=== PATIENT | male | born 1955 | race Caucasian/White ===

== ENCOUNTER 2023-07-07 15:33 | Inpatient (IN) | payer OTHER ==
--- OUTSIDE RECORDS SUMMARY | 2023-07-07 15:36 | XMS REPORT | Continuity of Care Document ---
Author Name Unknown Address [address] [facility]. [address] [place] [address] [facility] Address [address] [facility] [address]. [address] [place] [address] Care Team Providers Care Bakery Chef Name Role Phone Leonardoher Nemesio Primary Care Physician +[phone] Tricia Moore RN Attending Clinician Unavailable IBIS HUGHES Attending Clinician Lobito Maciel MD Attending Clinician + [phone] Ibis Hughes MD Attending Clinician + [phone] [place] Attending Clinician Unavailable FELICIA OMER Attending Clinician UnavailIBIS Zhang Admitting Clinician Ibis Lepe MD Admitting Clinician + [phone] [place] Admitting Clinician Unavailable Payers Payer Name Policy Type Policy Number Effective Date Expirati on Date Source Problems Condition Name Condition Details Condition Category Status Onset Date Resolution Date Last Treatment Date Treating Clinician Comments Source Cellulitis of right index finger Cellulitis of right index finger Disease Active 11-06 00:00: 00 [facility] Allergies, Adverse Reactions, Alerts Allergy Name Allergy Type Status Severity Reaction(s) Onset Date Inactive Date Treating Clinician Comments Source NO KNOWN ALLERGIE S Drug Class Active [facility] Social History Social Habit Start Date Stop Date Quantity Comments Source History SDOH Alcohol Std Drinks [facility] History SDOH Alcohol Binge [facility] History SDOH Social Connections Get Together [facility] History SDOH Social Connections Jew [facility] History SDOH Social Connections Membership [facility] History SDOH Social Connections Meetings [facility] History SDOH Alcohol Frequency 2022-11-07 00:00:00 2022-11-07 00:00:00 1 [facility] History SDOH Social Connections Phone 2022-11-07 00:00:00 2022-11-07 00:00:00 5 [facility] History SDOH Social Connections Living 2022-11-07 00:00:00 2022-11-07 00:00:00 3 [facility] History SDOH Physical Activity DPW 2022-11-07 00:00:00 2022-11-07 00:00:00 0 [facility] History SDOH Physical Activity MPS 2022-11-07 00:00:00 2022-11-07 00:00:00 0 [facility] History SDOH Financial 2022-11-07 00:00:00 2022-11-07 00:00:00 5 [facility] History SDOH Food Worry 2022-11-07 00:00:00 2022-11-07 00:00:00 1 [facility] History SDOH Food Scarcity 2022-11-07 00:00:00 2022-11-07 00:00:00 1 [facility] History SDOH Transport Med 2022-11-07 00:00:00 2022-11-07 00:00:00 2 [facility] History SDOH Transport Non-Med 2022-11-07 00:00:00 2022-11-07 00:00:00 2 [facility] History SDOH Housing Unable to Pay 2022-11-07 00:00:00 2022-11-07 00:00:00 2 [facility] History SDOH Housing Places Lived 2022-11-07 00:00:00 2022-11-07 00:00:00 1 [facility] History SDOH Housing Homeless Last Year 2022-11-07 00:00:00 2022-11-07 00:00:00 2 [facility] Tobacco use and exposure 2022-11-06 00:00:00 2022-11-06 00:00:00 Smokeless tobacco non-user [facility] Sex Assigned At 1955 00:00:00 1955 00:00:00 [facility] Smoking Status Start Date Stop Date Source Never smoked tobacco [facility] Medications Ordered Medication Name Filled Medication Name Start Date Stop Date Current Medication? Ordering Clinician Indication Dosage Frequency Signature (SIG) Comments Components Source atorvastati n 20 mg tablet 11-07 15:25: 41 Yes 20mg Take 1 tablet by mouth at bedtime. [facility] atorvastati n 20 mg tablet 11-07 15:25: 41 Yes 20mg Take 1 tablet by mouth at bedtime. [facility] ampicillin- sulbactam (UNASYN) 3 g in NaCl 0.9% (NS) 100 mL MINI-BAG 11-07 03:00: 00 11-07 15:01 :00 No 3g 3 g, IV Piggyback, Q6H ABX, 3 doses, First dose (after last reorder) on Thu11/06/22 at 2200, Last dose on Thu11/07/22 at 1000, Administer over 30 Minutes, 100 mL
Reas on for Anti-Infec tive: Empiric Therapy for Suspected Infection< br>Empiric Therapy Site: Skin / Soft tissue
Duration of therapy: 72 hours [facility] atorvastati n (LIPITOR) tablet 20 mg 11-07 02:00: 00 Yes 20mg 20 mg, Oral, QHS, First dose on Thu11/06/22 at 2100, Until Discontinu ed, Routine [facility] amoxicillin -clavulanat e (AUGMENTIN) 875-125 mg per tablet 11-07 00:00: 00 11-17 04:59 :00 No [id number] 1{tbl} Take 1 tablet by mouth in the morning and 1 tablet in the evening. Do all this for 9 days. [facility] amoxicillin -clavulanat e (AUGMENTIN) 875-125 mg per tablet 11-07 00:00: 00 11-17 04:59 :00 No [id number] 1{tbl} Take 1 tablet by mouth in the morning and 1 tablet in the evening. Do all this for 9 days. [facility] enoxaparin (LOVENOX) injection 40 mg 11-06 22:00: 00 Yes 40mg 40 mg, Subcutaneo us, DAILY, First dose on Cris 11/06/22 at 1700, Until Discontinu ed, Routine [facility] acetaminoph en (TYLENOL) tablet 650 mg 11-06 20:21: 44 Yes 650mg 650 mg, Oral, Q6HPRN, Starting on Cris 11/06/22 at 1521, Until Discontinu ed, Routine, Pain (scale 1-3) [facility] ampicillin- sulbactam (UNASYN) 3 g in NaCl 0.9% (NS) 100 mL MINI-BAG 11-06 14:47: 00 11-06 15:24 :00 No 3g 3 g, IV Piggyback, ONCE, 1 dose, On Cris 11/06/22 at 1000, Administer over 30 Minutes, 100 mL
Reas on for Anti-Infec tive: Empiric Therapy for Suspected Infection< br>Empiric Therapy Site: Skin / Soft tissue
Duration of therapy: 72 hours [facility] Vital Signs Vital Name Observation Time Observation Value Comments S ource Systolic blood pressure 2022-11-07 16:19:00 128 mm[Hg] [facility] Diastolic blood pressure 2022-11-07 16:19:00 75 mm[Hg] [facility] Heart rate 2022-11-07 16:19:00 58 /min Nyasia [facility] Body temperature 2022-11-07 16:19:00 36.67 Lizbeth [facility] Respiratory rate 2022-11-07 16:19:00 18 /min [facility] Oxygen saturation in Arterial blood by Pulse oximetry 2022-11-07 16:19:00 93 /min [place] [facility] Body height 2022-11-07 02:43:00 175.3 cm [facility] Body weight 2022-11-06 14:17:00 80.74 kg [facility] BMI 2022-11-06 14:17:00 26.29 kg/m2 [facility] Procedures Procedure Date / Time Performed Performing Clinicia n Source COMP. METABOLIC PANEL (66376) 2022-11-06 15:27:00 Heron Real [facility] XR HAND 3+ VW RIGHT 2022-11-06 15:23:00 Juan Real [facility] CBC WITH DIFF 2022-11-06 15:12:00 [facility]AT[facility] 2022-11-06 14:10:52 Doctor Unassigned, Lula [facility] Encounters Start Date/Time End Date/Time Encounter Type Admission Type Attending Clinicians Care Facility Care Department Encounter ID Source 2022-11-10 00:00:00 2022-11-10 00:00:00 Transition of Care Tricia MoorePramod COSTA [id number] [facility] 2022-11-06 09:22:00 2022-11-07 15:25:00 Outpatient X [facility] [id number] [facility] 2022-11-06 09:22:00 2022-11-07 15:25:00 Emergency Morrical, Ibis Austin [facility] [id number] [facility] 2020-04-04 09:54:00 2020-04-04 23:59:00 TIFFANIE S 3 [place], LES [facility], [address], [facility] [place], [place] [place] [address] [facility] [id number] [facility] l (LUF/LI V/SA) 2019-10-29 13:47:00 2019-10-29 18:54:00 Emergency E FELICIA OMER MHNE MHNE 7500 MHNE Results Test Description Test Time Test Comments Results Result Co mments Source [facility] WITH [id number] 15:18:26* Test Item Value Reference Range Interpretation Comme nts WBC (test code = 6690-2) 10.02 See_Comment [Automated messa ge] The system which generated this result transmitted reference range: 4.20 - 10.70 10*3/?L. The reference range was not used to interpret this result as normal/abnormal. RBC (test code = 789-8) 5.03 See_Comment [Automated messa ge] The system which generated this result transmitted reference range: 4.26 - 5.52 10*6/?L. The reference range was not used to interpret this result as normal/abnormal. HGB (test code = 718-7) 15.1 g/dL 12.2-16.4 HCT (test code = 4544-3) 44.5 % 38.4-49.3 MCV (test code = 787-2) 88.5 fL 81.7-95.6 MCH (test code = 785-6) 30.0 pg 26.1-32.7 MCHC (test code = 786-4) 33.9 g/dL 31.2-35.0 RDW-SD (test code = 95632-1) 43.3 fL 38.5-51.6 RDW-CV (test code = 788-0) 13.3 % 12.1-15.4 PLT (test code = 777-3) 160 See_Comment [Automated messa ge] The system which generated this result transmitted reference range: 150 - 328 10*3/?L. The reference range was not used to interpret this result as normal/abnormal. MPV (test code = 80229-2) 9.8 fL 9.8-13.0 NRBC/100 WBC (test code = 9389656470) 0.0 See_Comment [Automated [employer] ssage] The system which generated this result transmitted reference range: 0.0 - 10.0 /100 WBCs. The reference range was not used to interpret this result as normal/abnormal. NRBC x10^3 (test code = 5318475907) See_Comment [Automated messa ge] The system which generated this result transmitted reference range: 10*3/?L. The reference range was not used to interpret this result as normal/abnormal. GRAN MAT (NEUT) % (test code = 770-8) 69.2 % IMM GRAN % (test code = 5755949945) 0.30 % LYMPH % (test code = 736-9) 17.4 % MONO % (test code = 5905-5) 11.3 % EOS % (test code = 713-8) 1.4 % BASO % (test code = 706-2) 0.4 % GRAN MAT x10^3(ANC) (test code = 5006256407) 6.94 10*3/uL 1.99-6.95 IMM GRAN x10^3 (test code = 1321007264) 0.03 10*3/uL 0.00-0.06 LYMPH x10^3 (test code = 731-0) 1.74 10*3/uL 1.09-3.23 MONO x10^3 (test code = 742-7) 1.13 10*3/uL 0.36-1.02 H EOS x10^3 (test code = 711-2) 0.14 10*3/uL 0.06-0.53 BASO x10^3 (test code = 704-7) 0.04 10*3/uL 0.01-0.09 Lab Interpretation (test code = 42710-7) [facility]normal [facility]-5 [id number] 11:40:[address] [facility] (LU/CIARA/SA)Name: BABAR ROA : [id number] Sex: MCervical spine series 5 views:History: TorticollisAP, lateral/humerus, odontoid and both oblique views were obtained. A normalcervical lordosis is present. No fracture or subluxation is identified. There isno rotation of the head or significant rotatory positioning of the spine.Changes of degenerative disc disease are present at C5-6 with narrowing andsmall anterior osteophytes. Facetarthrosis is present in the mid to lowercervical region, greater on the left. No prevertebral soft tissue swelling isnoted. Mild nuchal ligament calcification is present. The sagittal diameter ofthe spinal canal appears adequate.Impression: Cervical spondylosis as described.This final report was electronically signed by Dr Romel Yap MD 04/04/202011:34 AMDictated By: ROMEL YAPDate: 11:34[facility] [place] SHOULDER WO [id number] 08:17:10"If patient is claustrophobic, contact ordering ysician for additional instructions."MRI of the right shoulder without contrast:History: Biceps tendinitisMultiplanar magnetic resonanceimaging of the right shoulder was performedwithout contrast.There is severe tendinosis of the distal supraspinatus tendon with afull-thickness tear just lateral to the level of the dome of the humerus. Thereis associated bursal effusion in the subacromial and subdeltoid regions.Infraspinatus tendinosis is also present and a partial thickness bursal sidedtear its insertion cannot be excluded. The teres minor and subscapularis tendonsappear intact. Mild atrophic changes of the supraspinatus muscle is noted.A type I acromion is present. There is mild lateral acromial downsloping.Narrowing of theacromioclavicular joint is noted with marginal spurring andcapsular hypertrophy. The coracoclavicular ligaments are intact.There is abnormal signal in the superior glenoid labrum reflecting degenerativetearing/fraying. There is involvement of the biceps anchor with likelyfull-thickness tearing of the proximal long head of the biceps tendon and thetendon is either attenuated or absent further distally in the bicipital groove.Tearing of the posterior glenoid labrum is also present. These findings can beassessed with arthroscopy. A minimal glenohumeral joint effusion is present.Impression:1. Full-thickness rotator cuff tear involving the distal supraspinatus tendonwith marked tendinosis.2. Infraspinatus tendinosis with a questionable small bursal sidedpartial-thickness tear.3. Apparent torn superior glenoid labrum and posterior labral tear.4. Likely full-thickness tearing of the proximal long head of the biceps tendon.5. Moderate acromioclavicular joint arthrosis with mild lateral acromialdownsloping but no significant impingement into position scanned.This final report was electronically signed by Dr Romel Yap MD 01/06/20198:10 AMDictated By: Danny YAPte: 01/06/2019 08:10 [facility] 2 [id number] 13:02:47Right shoulder 3 views:History: Right shoulder pain, biceps tendinitisFrontal views in internal andexternal rotation and a scapular Y view wereobtained. No fracture or dislocation is identified. Narrowing of theacromioclavicular joint is noted with mild marginal spurring. The soft tissuesare unremarkable.Impression: No acute bony or joint abnormality. Degenerative changes at theacromioclavicular joint.This final report was electronically signed by Dr Romel Yap MD 12/07/201812:56 PMDictated By: Antwon YAP: 12/07/2018 12:56[facility]
[2023-07-07 16:13] LABS: Absolute Lymphocytes (CBC) 1.2 K/uL (0.7-4.9); Hematocrit 47.8 % (39.6-49.0); Lymphocytes % 12.2 % (15.3-44.8); MCV 88.6 fL (80-100); MPV 7.8 fL (7.6-11.3); Platelets 173 thou/uL (152-406); RBC Red Blood Cell Count 5.39 M/uL (4.33-5.43)
[2023-07-07 16:31] LABS: Albumin 3.7 g/dL (3.4-5.0); Bilirubin Direct 0.2 mg/dL (0-0.2); Bilirubin Indirect, Calculated 0.7 mg/dL (0.2-0.8); Bilirubin Total 0.9 mg/dL (0.2-1.0); Magnesium 2.2 mg/dL (1.6-2.4); Potassium 3.8 mEq/L (3.5-5.1); Protein, Total 6.9 g/dL (6.4-8.2)
[2023-07-07] MEDS ORDERED: NA CHLORIDE 0.9% 1,000 ML ONE (16:42)
--- NOTE | 2023-07-07 17:03 | RAD REPORT ---
EXAM DESCRIPTION: Aly Single View07/07/2023 4:47 pm CLINICAL HISTORY: sob COMPARISON: none FINDINGS: The lungs appear clear of acute infiltrate. The heart is normal size IMPRESSION: No acute abnormalities displayed
[2023-07-07] MEDS ORDERED: METHYLPREDNISOLONE 125 MG INJ ONE (17:34)
[2023-07-07] MEDS ORDERED: DIPHENHYDRAMINE 50 MG/ML VIAL ONE (17:34)
--- NOTE | 2023-07-07 17:59 | RAD REPORT ---
EXAM DESCRIPTION: CT - Chest For Pe Angio - 07/07/2023 5:47 pm CLINICAL HISTORY: Chest pain ELEVATED D-DIMER COMPARISON: None. TECHNIQUE: Dynamically enhanced axial 3 mm thick images of the chest were obtained during administra tion of 100 mL Isovue 370 IV contrast. Coronal and oblique reconstruction images were generated and r eviewed. Exam utilizes a protocol for optimal evaluation of pulmonary arterial tree. Maximum intensity projections 3D imaging was utilized All CT scans are performed using dose optimization technique as appropriate and may include automated exposure control or mA/KV adjustment according to patient size. FINDINGS: A pulmonary embolus is not seen. A thoracic aortic aneurysm is not noted. A pleural effusion is not seen. A pericardial effusion is not seen. A lung consolidation is not present. IMPRESSION: Negative for a pulmonary embolism.
--- NOTE | 2023-07-07 19:52 | EDPHYS ---
Physician Documentation [facility] Name: Kenyon Roa Age: 67 yrs Sex: Male : 1955 Arrival Date: 07/07/2023 Time: 15:33 Bed 3 Private MD: ED Physician Michelet Steel HPI: 07/07 16:00 This 67 yrs old Male presents to ER via Ambulatory with complaints of DEHYDRATION. [facility] 16:00 67-year-old male with past medical history of HLD and glaucoma presents to the [facility] emergency department with complaints of shortness of breath and tingling of bilateral hands. 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 Pt rates pain 0/10 and denies chest pain or palpitations. Patient denies any alleviating or inciting factors.. Historical: - Allergies: 15:41 No Known Allergies; db - PMHx: 15:41 None; db - Immunization history:: Adult Immunizations unknown. - Social history:: Smoking status: . ROS: 16:00 Constitutional: Negative for fever, and chills. Neck: Negative for injury, pain, and ms3 swelling, 16:00 Respiratory: Negative for shortness of breath, cough, wheezing, and pleuritic chest pain, Abdomen/GI: Negative for abdominal pain, nausea, vomiting, diarrhea, and constipation, MS/Extremity: Negative for injury and deformity, Skin: Negative for injury, rash, and discoloration, 16:00 Cardiovascular: Positive for palpitations, 16:00 Neuro: Positive for Paresthesias, Exam: 16:00 Constitutional: This is a well developed, well nourished patient who is awake, alert, ms3 and in no acute distress. Head/Face: Normocephalic, atraumatic. Neck: Trachea midline, no cervical lymphadenopathy. Supple, full range of motion without nuchal rigidity, or vertebral point tenderness. No Meningismus. Chest/axilla: Normal chest wall appearance and motion. Nontender with no deformity. Cardiovascular: Regular rate and rhythm with a normal S1 and S2. No gallops, murmurs, or rubs. Normal PMI, no JVD. No pulse deficits. Respiratory: Lungs have equal breath sounds bilaterally, clear to auscultation and percussion. No rales, rhonchi or wheezes noted. No increased work of breathing, no retractions or nasal flaring. Abdomen/GI: Soft, non-tender, with normal bowel sounds. No distension or tympany. No guarding or rebound. No evidence of tenderness throughout. Skin: Warm, dry with normal turgor. Normal color with no rashes, no lesions, and no evidence of cellulitis. MS/ Extremity: Pulses equal, no cyanosis. Neurovascular intact. Full, normal range of motion. 17:06 ECG was reviewed by the Attending Physician. ms3 Vital Signs: 15:42 BP 139 / 94; Pulse 118; Resp 18; Temp 98.8(O); Pulse Ox 96% ; Weight 84.37 kg; Height 5 db ft. 10 in. ; 16:00 BP 134 / 86; Pulse 108; Resp 16; Pulse Ox 97% on R/A; me1 16:55 BP 126 / 78; Pulse 82; Resp 16; Pulse Ox 98% on R/A; me1 17:40 BP 119 / 85; Pulse 91; Resp 20; Pulse Ox 98% on R/A; ld1 18:30 BP 132 / 68; Pulse 75; Resp 22; Pulse Ox 100% on R/A; me1 19:31 BP 132 / 66; Pulse 76; Resp 19; Pulse Ox 98% on R/A; me1 20:30 BP 112 / 86; Pulse 71; Resp 20; Pulse Ox 96% on R/A; me1 21:40 BP 132 / 75; Pulse 76; Resp 17; Pulse Ox 97% on R/A; me1 22:30 BP 138 / 80; Pulse 70; Resp 21; Pulse Ox 95% on R/A; me1 23:33 BP 123 / 98; Pulse 72; Resp 22; Pulse Ox 97% ; me1 02 04:14 BP 117 / 76; Pulse 61; Resp 16; Temp 98; Pulse Ox 97% on R/A; rv 07/07 15:42 Body Mass Index 26.69 (84.37 kg, 177.8 cm) db Varney Coma Score: 04:15 Eye Response: spontaneous(4). Motor Response: obeys commands(6). Verbal Response: rv oriented(5). Total: 15. MDM: 07/07 15:58 Patient medically screened. ms3 16:00 Differential Diagnosis Electrolyte abnormality versus dehydration versus paresthesias ms3 versus MT. 17:53 Transition of care: After a detail discussion of the patient's case, care is ms3 transferred to Michelet Steel MD. 07/07 15:59 Order name: Basic Metabolic Panel; Complete Time: 16:37 ms3 07/07 15:59 Order name: CBC with Diff; Complete Time: 16:37 ms3 07/07 15:59 Order name: LFT's; Complete Time: 16:37 ms3 07/07 15:59 Order name: Magnesium; Complete Time: 16:37 ms3 07/07 15:59 Order name: Troponin HS; Complete Time: 16:37 ms3 07/07 16:37 Order name: D-Dimer; Complete Time: 17:05 ms3 07/07 17:50 Order name: Troponin High Sensitivity; Complete Time: 19:23 ms3 07/07 21:49 Order name: Urinalysis w/ reflexes EDMS 07/07 21:49 Order name: CBC with Automated Diff EDMS 07/07 21:49 Order name: CBC with Automated Diff EDMS 07/07 21:49 Order name: Comprehensive Metabolic Panel EDMS 07/07 21:49 Order name: Comprehensive Metabolic Panel EDMS 07/07 21:49 Order name: Magnesium EDMS 07/07 21:49 Order name: Magnesium EDMS 07/07 21:49 Order name: Troponin High Sensitivity EDMS 07/07 21:49 Order name: Troponin High Sensitivity EDMS 07/07 15:59 Order name: XRAY Chest (1 view); Complete Time: 17:05 ms3 07/07 17:05 Order name: CT Chest For PE Angio; Complete Time: 18:00 ms3 07/07 15:59 Order name: EKG; Complete Time: 16:00 ms3 07/07 21:49 Order name: CONS Physician Consult EDMS 07/07 15:59 Order name: Cardiac monitoring; Complete Time: 16:16 ms3 07/07 15:59 Order name: EKG - Nurse/Tech; Complete Time: 16:11 ms3 07/07 15:59 Order name: IV Saline Lock; Complete Time: 16:11 ms3 07/07 15:59 Order name: Labs collected and sent; Complete Time: 16:11 ms3 07/07 15:59 Order name: O2 Per Protocol; Complete Time: 16:11 ms3 07/07 15:59 Order name: O2 Sat Monitoring; Complete Time: 16:11 ms3 EC:06 Rate is 103 beats/min. Rhythm is regular. Left axis deviation noted. TX interval is ms3 normal. QRS interval is normal. Clinical impression: Sinus tachycardia. Interpreted by me. Reviewed by me. Administered Medications: 16:46 Drug: NS 0.9% IV 1000 ml IV at 1 bolus Per protocol; 1000 mL bolus Route: IV; Rate: 1 me1 bolus; Site: right antecubital; 07/08 04:15 Follow up: IV Status: Completed infusion; IV Intake: 1000ml rv 07/07 17:40 Drug: diphenhydrAMINE IVP 25 mg IVP once Route: IVP; Site: right antecubital; ap3 19:27 Follow up: Response: No adverse reaction me1 17:40 Drug: MethylPrednisoLONE IVP 125 mg IVP once Route: IVP; Site: right antecubital; ap3 19:27 Follow up: Response: No adverse reaction me1 20:20 Drug: Enoxaparin Sub-Q 1 mg/kg Sub-Q once Route: Sub-Q; Site: left lower abdomen; me1 21:00 Follow up: Response: No adverse reaction me1 Disposition Summary: 07/07/23 19:51 Hospitalization Ordered Notes: Hospitalization Status: Observation rt Provider: Ginger Joshi rt Condition: Fair rt Problem: new rt Symptoms: have improved rt Bed/Room Type: Standard rt Location: Telemetry/MedSurg (observation)(07/08/23 03:37) lg3 Room Assignment: [facility](07/08/23 03:37) lg3 Diagnosis - Subsequent non-ST elevation (NSTEMI) myocardial infarction rt Discharge Instructions: - Discharge Summary Sheet ms3 - Palpitations ms3 - Paresthesia ms3 Forms: - Medication Reconciliation Form rt - SBAR form rt - Leadership Thank You Letter rt Signatures: Dispatcher [employer] Laura Arteaga RN RN ap3 Aixa Valdez RN RN lg3 Jigar Denis DO DO ms3 Carmella Davis RN RN db [place], Ryan, MD MD rt Delicia Lan RN RN me1 Mart Rehman Ronaldo RN rv Corrections: (The following items were deleted from the chart) 20:49 19:51 Telemetry/MedSurg (observation) rt ty 49 19:51 rt ty 07/08 03:37 07/07 20:49 [facility] ER HOLD ty lg3 07/08 03:37 07/07 20:49 ERHOLD- ty lg3
--- NOTE | 2023-07-07 19:52 | ER ---
Nurse's Notes [facility] Nesha Name: Kenyon Roa Age: 67 yrs Sex: Male : 1955 Arrival Date: 07/07/2023 Time: 15:33 Bed 3 Private MD: Diagnosis: Subsequent non-ST elevation (NSTEMI) myocardial infarction Presentation: 07/07 15:40 Chief complaint: Patient states: STATES FEELS DEHYDRATED. STATES FEELS SHAKY AND WAS db BREATHING HARD. 15:42 Coronavirus screen: Client denies travel out of the [place] in the last 14 days. At this db time, the client does not indicate any symptoms associated with coronavirus-19. Ebola Screen: Patient negative for fever greater than or equal to 101.5 degrees Fahrenheit, and additional compatible Ebola Virus Disease symptoms Patient denies exposure to infectious person. Patient denies travel to an Ebola-affected area in the 21 days before illness onset. No symptoms or risks identified at this time. Initial Sepsis Screen: Does the patient meet any 2 criteria? No. Patient's initial sepsis screen is negative. Does the patient have a suspected source of infection? No. Patient's initial sepsis screen is negative. Risk Assessment: Do you want to hurt yourself or someone else? Patient reports no desire to harm self or others. Onset of symptoms was July 07, 2023. 15:42 Method Of Arrival: Ambulatory db 15:42 Acuity: MICHAEL 2 db Triage Assessment: 15:42 General: Appears in no apparent distress. comfortable, Behavior is calm, cooperative. db Pain: Denies pain. Neuro: Level of Consciousness is awake, alert, obeys commands, Oriented to person, place, time, situation, Speech is normal. Respiratory: Airway is patent Respiratory effort is even, unlabored, Respiratory pattern is regular, symmetrical. Historical: - Allergies: 15:41 No Known Allergies; db - PMHx: 15:41 None; db - Immunization history:: Adult Immunizations unknown. - Social history:: Smoking status: . Screenin:20 [facility] ED Fall Risk Assessment (Adult) History of falling in the last 3 months, me1 including since admission No falls in past 3 months (0 pts) Confusion or Disorientation No (0 pts) Intoxicated or Sedated No (0 pts) Impaired Gait No (0 pts) Mobility Assist Device Used No (0 pt) Altered Elimination No (0 pt) Score/Fall Risk Level 0 - 2 = Low Risk Maintained a safe environment, Provided non-skid footwear, Hourly rounding (assess needs \\T\\ fall precautionary measures) done. Abuse screen: Denies threats or abuse. Nutritional screening: No deficits noted. Tuberculosis screening: No symptoms or risk factors identified. 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 States he felt weird, "shaky". Denies chest pain. Reports tingling to fingers bilaterally. Pain: Denies pain. Neuro: Level of Consciousness is awake, alert, obeys commands, Oriented to person, place, time, situation, Appropriate for age. Cardiovascular: Capillary refill < 3 seconds Patient's skin is warm and dry. Cardiovascular: Denies chest pain, diaphoresis. Respiratory: Airway is patent Trachea midline Respiratory effort is even, unlabored, Respiratory pattern is regular, symmetrical. Musculoskeletal: Reports tingling to fingers bilaterally. Vital Signs: 15:42 BP 139 / 94; Pulse 118; Resp 18; Temp 98.8(O); Pulse Ox 96% ; Weight 84.37 kg; Height 5 db ft. 10 in. ; 16:00 BP 134 / 86; Pulse 108; Resp 16; Pulse Ox 97% on R/A; me1 16:55 BP 126 / 78; Pulse 82; Resp 16; Pulse Ox 98% on R/A; me1 17:40 BP 119 / 85; Pulse 91; Resp 20; Pulse Ox 98% on R/A; ld1 18:30 BP 132 / 68; Pulse 75; Resp 22; Pulse Ox 100% on R/A; me1 19:31 BP 132 / 66; Pulse 76; Resp 19; Pulse Ox 98% on R/A; me1 20:30 BP 112 / 86; Pulse 71; Resp 20; Pulse Ox 96% on R/A; me1 21:40 BP 132 / 75; Pulse 76; Resp 17; Pulse Ox 97% on R/A; me1 22:30 BP 138 / 80; Pulse 70; Resp 21; Pulse Ox 95% on R/A; me1 23:33 BP 123 / 98; Pulse 72; Resp 22; Pulse Ox 97% ; me1 07/08 04:14 BP 117 / 76; Pulse 61; Resp 16; Temp 98; Pulse Ox 97% on R/A; rv 07/07 15:42 Body Mass Index 26.69 (84.37 kg, 177.8 cm) db Raymond Coma Score: 04:15 Eye Response: spontaneous(4). Motor Response: obeys commands(6). Verbal Response: rv oriented(5). Total: 15. ED Course: 07/07 15:35 Patient arrived in ED. kj1 15:38 Jigar Denis DO is Attending Physician. ms3 15:40 Camrella Davis, RN is Primary Nurse. db 15:42 Arm band placed on left wrist. Patient placed in an exam room. db 15:43 Triage completed. db 16:11 Inserted saline lock: 20 gauge in right antecubital area, using aseptic technique. me1 16:11 Basic Metabolic Panel Sent. me1 16:11 CBC with Diff Sent. me1 16:11 LFT's Sent. me1 16:11 Magnesium Sent. me1 16:11 Troponin HS Sent. me1 16:20 Patient has correct armband on for positive identification. Bed in low position. Call me1 light in reach. Side rails up X2. Provided Education on: POC. Verbalized understanding. . 16:20 No provider procedures requiring assistance completed. me1 16:41 D-Dimer Sent. me1 16:49 XRAY Chest (1 view) In Process Unspecified. EDMS 17:49 CT Chest For PE Angio In Process Unspecified. EDMS 17:53 Attending Physician role handed off by Jigar Denis DO ms3 17:53 Michelet Steel MD is Attending Physician. ms3 19:51 Ginger Joshi MD is Hospitalizing Provider. rt 07/08 04:14 Patient admitted, IV remains in place. rv Administered Medications: 07/07 16:46 Drug: NS 0.9% IV 1000 ml IV at 1 bolus Per protocol; 1000 mL bolus Route: IV; Rate: 1 me1 bolus; Site: right antecubital; 07/08 04:15 Follow up: IV Status: Completed infusion; IV Intake: 1000ml rv 07/07 17:40 Drug: diphenhydrAMINE IVP 25 mg IVP once Route: IVP; Site: right antecubital; ap3 19:27 Follow up: Response: No adverse reaction me1 17:40 Drug: MethylPrednisoLONE IVP 125 mg IVP once Route: IVP; Site: right antecubital; ap3 19:27 Follow up: Response: No adverse reaction me1 20:20 Drug: Enoxaparin Sub-Q 1 mg/kg Sub-Q once Route: Sub-Q; Site: left lower abdomen; me1 21:00 Follow up: Response: No adverse reaction me1 Medication: 16:20 VIS not applicable for this client. me1 Intake: 07/08 04:15 IV: 1000ml; Total: 1000ml. rv Outcome: 07/07 19:51 Decision to Hospitalize by Provider. rt 07/08 04:14 Admitted to Med/surg accompanied by nurse, via wheelchair, room 201, with chart, Report rv called to kishan bowens Condition: good Instructed on the need for admit, 04:17 Patient left the ED. rv Signatures: Dispatcher [employer] EDLaura Psatrana RN RN ap3 Tony Gentile RN RN rv Zonia Ribeiro kj1 Jigar Denis DO DO ms3 Maye Denis RN RN ld1 Carmella Davis RN RN db Michelet Steel MD MD rt Delicia Lan, JAY RN me1 Corrections: (The following items were deleted from the chart) 07/07 15:43 15:40 Chief complaint: Patient states: STATES FEELS DEHYDRATED. STATES FEELS WAVE db db 15:44 15:42 BP 139 / 94; Pulse 118bpm; Resp 18bpm; Pulse Ox 96%; Temp 98.8F Oral; db db
[2023-07-07] MEDS ORDERED: ENOXAPARIN 100 MG/ML SYR SQ ONE (19:58)
[2023-07-07] MEDS ORDERED: ONDANSETRON 4 MG/2 ML VIAL IV PRN (21:46)
[2023-07-07 22:34] VITALS: BMI 26.6
[2023-07-08 00:29] LABS: Renal Epithelial <5 /HPF (None Seen); Specific Gravity 1.027 (1.005-1.030); Urine Bacteria None Seen /HPF (<20); Urine Bilirubin NEGATIVE (Negative); Urine Blood Negative (Negative); Urine Clarity Clear (Clear); Urine Color Light-Yellow (Yellow); Urine Glucose 4+ (Over) (Negative); Urine Protein NEGATIVE (Negative); Urine RBC None Seen /HPF (None Seen); Urine Urobilinogen Normal (Normal)
[2023-07-08] MEDS: ENOXAPARIN 80 MG/0.8 ML SQ SCH (00:34)
--- NOTE | 2023-07-08 00:47 | P.HP ---
Certification for Inpatient With expected LOS: >2 Midnights Practitioner: I am a practitioner with admitting privileges, knowledge of patient current condition, hospital course, and medical plan of care. Services: Services provided to patient in accordance with Admission requirements found in Title 42 Section 412.3 of the Code of Federal Regulations Patient History Date of Service: 07/07/23 Reason for admission: Chest pain History of Present Illness: 67-year-old male with no significant past medical history presented to the ED after he noticed significant shortness of breath with palpitation today while walking with a sledgehammer. Patient stated that although he was working with a sledgehammer the shortness of breath and the palpitation were out of context for the amount of minimal exertion applied. He denied any chest pain but has been recently more tired and feeling more sluggish in the last few days. He denied any leg swelling, PND or orthopnea. On arrival to the ER heart rate was 118, EKG showed premature atrial complexes with sinus tachycardia. Abnormal labs include BUN 20, D-dimer [address] angio of the chest and chest x-ray were negative. Allergies No Known Allergies Allergy (Unverified 07/07/23 21:48) Review of Systems 10-point ROS is otherwise unremarkable Physical Examination - Vital Signs Temperature: 98.8 F Blood Pressure: 132/66 Pulse: 76 Respirations: 19 Pulse Ox (%): 98 - Physical Exam General: Alert, In no apparent distress, Oriented x3 HEENT: Normocephalic, PERRLA, Mucous membr. moist/pink Neck: Supple, JVD not distended Respiratory: Clear to auscultation bilaterally, Normal air movement Cardiovascular: No edema, Regular rate/rhythm, Normal S1 S2 Gastrointestinal: Normal bowel sounds, Soft and benign, Non-distended Musculoskeletal: No swelling, No erythema, No tenderness Integumentary: No rashes, No erythema Neurological: Normal gait, Normal speech, Normal strength at 5/5 x4 extr - Studies Laboratory Data (last 24 hrs) 07/07/23 07/07/23 16:03 16:03 WBC 10.00 Hgb 16.4 Hct 47.8 Plt Count 173 Sodium 138 Potassium 3.8 BUN 20 H Creatinine 0.95 Glucose 178 H Magnesium 2.2 Total Bilirubin 0.9 AST 15 ALT 34 Alkaline Phosphatase 65 Assessment and Plan - Plan NSTEMI Dehydration, resolved with IV fluid Plan Admit to telemetry Start aspirin and weight-based Lovenox Lipid panel, repeat troponin Follow-up echo Cardiology consult - Advance Directives Does patient have a Living Will: No Does patient have a Durable POA for Healthcare: No
[2023-07-08] MEDS ORDERED: ENOXAPARIN 80 MG/0.8 ML SQ ONE (00:57)
[2023-07-08 04:54] LABS: Hematocrit 45.2 % (39.6-49.0); Lymphocytes % 13.3 % (15.3-44.8); MCV 89.6 fL (80-100); Platelets 161 thou/uL (152-406); RBC Red Blood Cell Count 5.04 M/uL (4.33-5.43)
[2023-07-08 05:12] LABS: Albumin 3.3 g/dL (3.4-5.0); Bilirubin Total 0.6 mg/dL (0.2-1.0); Magnesium 2.4 mg/dL (1.6-2.4); Potassium 4.1 mEq/L (3.5-5.1); Protein, Total 6.3 g/dL (6.4-8.2); Troponin High Sensitivity 56.8 pg/mL (<58.9)
[2023-07-08 05:46] LABS: Blood Morphology Comment NOT SEEN (NOT SEEN); Platelet Estimate ADEQ
[2023-07-08] MEDS: ASPIRIN EC 81 MG TAB PO SCH (08:49)
--- NOTE | 2023-07-08 19:14 | P.PN ---
Subjective Date of Service: 07/08/23 Chief Complaint: Chest pain Patient denies any chest pain at the moment. He reported feeling skipped beat and fatigue. Troponin trended up to 105 and then trended down. Physical Examination - Vital Signs Temperature: 98.7 F Blood Pressure: 125/68 Pulse: 68 Respirations: 18 Pulse Ox (%): 97 - Physical Exam General: Alert, In no apparent distress, Oriented x3 HEENT: Mucous membr. moist/pink Neck: Supple, JVD not distended Respiratory: Clear to auscultation bilaterally, Normal air movement Cardiovascular: No edema, Regular rate/rhythm, Normal S1 S2, No murmurs Gastrointestinal: Normal bowel sounds, Soft and benign, Non-distended, No tenderness Musculoskeletal: No swelling Integumentary: No rashes, No cyanosis Neurological: Normal speech Assessment And Plan - Current Problems (Diagnosis) (1) NSTEMI (non-ST elevated myocardial infarction) Current Visit: Yes Status: Acute (2) Palpitation Current Visit: Yes Status: Acute (3) Atrial premature complexes Current Visit: Yes Status: Acute - Plan Case discussed with cardiology Dr. Casas who is considering cardiac catheterization in the a.m. Hold full dose lovenox N.p.o. after midnight On aspirin. Add beta-marika. Follow echocardiogram result Lipid profile within normal limits. Start Lipitor Continue cardiac monitoring.
[2023-07-08] MEDS: METOPROLOL TAR 25 MG TAB PO SCH (19:16)
[2023-07-08] MEDS: ATORVASTATIN 40 MG TAB PO SCH (20:20)
--- NOTE | 2023-07-09 09:53 | ECHO ---
HEIGHT: 5 ft 10 in WEIGHT: 186 lb 0 oz DATE OF STUDY: 07/08/[address]: Ginger Joshi MD 2-DIMENSIONAL: YES M.MODE: YES DOPPLER: YES COLOR FLOW: YES TDS: PORTABLE: YES DEFINITY: BUBBLE STUDY: DIAGNOSIS: NON ST ELEVATION MYOCARDIAL INFARCTION CARDIAC HISTORY: CATHERIZATION: NO SURGERY: NO PROSTHETIC VALVE: NO PACEMAKER: NO MEASUREMENTS (cm) DIASTOLIC (NORMALS) SYSTOLIC (NORMALS) IVSd 0.9 (0.6-1.2) LA Diam 4.5 (1.9-4.0) LVEF 73% LVIDd 5.3 (3.5-5.7) LVIDs 3.1 (2.0-3.5) %FS 43% LVPWd 1.0 (0.6-1.2) Ao Diam 3.0 (2.0-3.7) 2 DIMENSIONAL ASSESSMENT: RIGHT ATRIUM: NORMAL LEFT ATRIUM: NORMAL RIGHT VENTRICLE: NORMAL LEFT VENTRICLE: MILD DILATED, MILD LEFT VENTRICULAR HYPERTROPHY TRICUSPID VALVE: MILD TRICUSPID REGURGITATION MITRAL VALVE: TRACE MITRAL REGURGITATION PULMONIC VALVE: NORMAL AORTIC VALVE: NORMAL PERICARDIAL EFFUSION: NONE AORTIC ROOT: NORMAL LEFT VENTRICULAR WALL MOTION: NORMAL DOPPLER/COLOR FLOW: NORMAL COMMENTS: 1. MILD LEFT VENTRICULAR HYPERTROPHY, DILATED LEFT VENTRICLE, NORMAL LEFT VENTRICULAR SYSTOIC AND DIASTOLIC FUNCTION. EJECTION FRACTION 55-60%, NORMAL WALL MOTION 2. MILD TRICUSPID REGURGITATION, RIGHT VENTRICULAR SYSTOLIC PRESSURE 30-35 mmHg TECHNOLOGIST: ADDIE DURHAM
[2023-07-09] MEDS: DIPHENHYDRAMINE 50 MG/ML VIAL IV ONE (12:00)
[2023-07-09] MEDS: METHYLPREDNISOLONE 125 MG INJ IV ONE (12:00)
--- NOTE | 2023-07-09 13:25 | P.CNS ---
Date of Consult: 07/09/23 Reason for Consult: chest pain Chief Complaint: Chest pain History of Present Illness: patient with PMH of HLD, family history of premature CAD presented with palpitation and chest pain, pressure sensation lasted few minutes. Allergies No Known Allergies Allergy (Unverified 07/07/23 21:48) Home Medications: Bimatoprost [Lumigan] 07/08/23 Bimatoprost [Lumigan] 1 drop EACH EYE DAILY 07/08/23 - Past Medical/Surgical History Diabetic: No -: cataracts -: glaucoma -: kidney stones -: cataracts surgery -: hernia sx. - Social History Alcohol use: No CD- Drugs: No Caffeine use: Yes Place of Residence: Home Review of Systems 10-point ROS is otherwise unremarkable Physical Examination Temp Pulse Resp BP Pulse Ox 98.3 F 70 13 127/78 95 07/09/23 13:17 07/09/23 13:17 07/09/23 13:17 07/09/23 13:17 07/09/23 13:17 General: Alert, Oriented x3 HEENT: Atraumatic Neck: Supple Respiratory: Clear to auscultation bilaterally Cardiovascular: No edema, Normal S1 S2 Gastrointestinal: Normal bowel sounds - Problems (1) NSTEMI (non-ST elevated myocardial infarction) Current Visit: Yes Status: Acute Plan: plan of heart cath and coronary angiogram today continue ASA 81 mg daily Continue Lovenox premedication for iodoine allergy given
[2023-07-09] MEDS ORDERED: NA CHLORIDE 0.9% 500 ML ONE (14:41)
[2023-07-09] MEDS ORDERED: FENTANYL CITR 100 MCG/2 ML ONE (14:50)
[2023-07-09] MEDS ORDERED: VERAPAMIL HCL 10 MG/4 ML VIAL IV ONE (14:50)
[2023-07-09] MEDS ORDERED: HEPA 1000U/500MLS 2,000 UNIT/1,000 ML BAG IV ONE (14:50)
[2023-07-09] MEDS ORDERED: LIDOCAINE 1% 20 ML MDV ONE (14:50)
[2023-07-09] MEDS ORDERED: HEPARIN 10,000 UNIT/10 ML VIAL IV ONE (14:51)
[2023-07-09] MEDS ORDERED: HEPARIN 5000 UNIT/ML 1 ML VIAL ONE (14:51)
[2023-07-09] MEDS ORDERED: TICAGRELOR 90 MG TABLET PO ONE (14:51)
[2023-07-09] MEDS ORDERED: MIDAZOLAM HCL 2 MG/2 ML INJ ONE (14:51)
[2023-07-09] MEDS ORDERED: CLOPIDOGREL 75 MG TABLET ONE (14:51)
[2023-07-09] MEDS ORDERED: ASPIRIN 325 MG TAB ONE (14:52)
[2023-07-09] MEDS ORDERED: ATROPINE SULF 1 MG/10 ML SYR IV ONE (14:53)
--- NOTE | 2023-07-09 16:12 | EKG ---
Test Date: 2023-07-07 Test Time: 16:08:41 Brush Material Preparer: MEASUREMENT RESULTS: Intervals: Rate: 103 OK: 212 QRSD: 92 QT: 338 QTc: 442 [place]: P: 56 OK: 212 QRS: -39 T: 46 INTERPRETIVE STATEMENTS: Sinus tachycardia with 1st degree AV block with premature atrial complexes Left axis deviation Septal infarct, age undetermined Abnormal ECG No previous ECG available for comparison Electronically Signed On 07-09-23 16:06:22 FURNACE CHARGER by Abbe Casas
[2023-07-09 16:19] VITALS: TEMP 98
[2023-07-09 17:18] VITALS: O2SAT 96
[2023-07-09 17:35] VITALS: BP 122/71
--- NOTE | 2023-07-09 17:59 | P.DS ---
Admission Date: 07/07/23 Discharge Date: 07/09/23 Disposition: ROUTINE DISCHARGE Discharge Condition: FAIR Reason for Admission: Chest pain - Problems (1) NSTEMI (non-ST elevated myocardial infarction) Current Visit: Yes Status: Acute (2) Palpitation Current Visit: Yes Status: Acute (3) Atrial premature complexes Current Visit: Yes Status: Acute Brief History of Present Illness: 67-year-old male with no significant past medical history presented to the ED after he noticed significant shortness of breath with palpitation while walking with a sledgehammer. Patient stated that although he was working with a sle [employer] the shortness of breath and the palpitation were out of context for the amount of minimal exertion applied. He denied any chest pain but has been recently more tired and feeling more sluggish. He denied any leg swelling, PND or orthopnea. On arrival to the ER, heart rate was 118, EKG showed premature atrial complexes with sinus tachycardia. Abnormal labs included BUN 20, D-dimer [address] angio of the chest and chest x-ray were negative. Patient was hospitalized for ACS rule out. Hospital Course: Patient presented with palpitation, fatigue and shortness of breath. Cardiac enzyme-troponin was elevated. Patient cardiac risk factors include family history, male sex and age. Dose of concern for ACS. Patient was evaluated by cardiology who recommended cardiac catheterization. Cardiac catheterization revealed mild coronary artery disease, no percutaneous intervention warranted. Patient is discharged with aspirin, Lipitor for medical management of coronary artery disease. Patient declined to take metoprolol. Vital Signs/Physical Exam: Temp Pulse Resp BP Pulse Ox 98.0 F 65 12 122/71 95 07/09/23 16:05 07/09/23 17:34 07/09/23 17:34 07/09/23 17:34 07/09/23 13:17 Laboratory Data at Discharge: WBC 7.60 thou/uL (4.3-10.9) 07/08/23 04:27 Hgb 15.2 g/dL (13.6-17.9) 07/08/23 04:27 Hct 45.2 % (39.6-49.0) 07/08/23 04:27 Plt Count 161 thou/uL (152-406) 07/08/23 04:27 Sodium 139 mEq/L (136-145) 07/08/23 04:27 Potassium 4.1 mEq/L (3.5-5.1) 07/08/23 04:27 BUN 17 mg/dL (7-18) 07/08/23 04:27 Creatinine 0.71 mg/dL (0.70-1.30) 07/08/23 04:27 Glucose 166 mg/dL (74-106) H 07/08/23 04:27 Magnesium 2.4 mg/dL (1.6-2.4) 07/08/23 04:27 Total Bilirubin 0.6 mg/dL (0.2-1.0) 07/08/23 04:27 AST 13 U/L (15-37) L 07/08/23 04:27 ALT 32 U/L (16-61) 07/08/23 04:27 Alkaline Phosphatase 51 U/L (45-117) D 07/08/23 04:27 Triglycerides 31 mg/dL (<150) 07/08/23 04:27 Cholesterol 182 mg/dL (<200) 07/08/23 04:27 HDL Cholesterol 71 mg/dL (40-60) H 07/08/23 04:27 Cholesterol/HDL Ratio 2.56 07/08/23 04:27 Home Medications: Bimatoprost [Lumigan] 07/08/23 Bimatoprost [Lumigan] 1 drop EACH EYE DAILY 07/08/23 Aspirin [Aspirin EC] 81 mg PO DAILY #30 tab 07/09/23 Atorvastatin Calcium [Lipitor] 40 mg PO BEDTIME #30 tab 07/09/23 New Medications: Aspirin [Aspirin EC] 81 mg PO DAILY #30 tab Atorvastatin Calcium [Lipitor] 40 mg PO BEDTIME #30 tab Physician Discharge Instructions: Patient presented with palpitation, fatigue and shortness of breath. Cardiac enzyme-troponin was elevated. Patient cardiac risk factors include family history, male sex and age. Dose of concern for ACS. Patient was evaluated by cardiology who recommended cardiac catheterization. Cardiac catheterization revealed mild coronary artery disease, no percutaneous intervention warranted. Patient is discharged with aspirin, Lipitor for medical management of coronary artery disease. Diet: AHA Activity: Ad breanna Followup: TOE BRUCE [Primary Care Provider] - Time spent managing pt's care (in minutes): 26
--- NOTE | 2023-07-09 23:41 | OP ---
Date of Procedure: 07/09/2023 Surgeon: ELISSA BENJAMIN Procedures Performed: 1.Selective coronary angiogram. 2.Left heart catheterization. Indication: [id number] myocardial infarction. Access: Right radial artery 6-Malawian, closed with TR band. Complications: None. Bleeding: Less than 20 mL. Anesthesia: Total sedation time was 30 minutes, used fentanyl and Versed. Description Of Procedure: After risks, benefits, and alternatives were explained, the patient agreed to procedure and signed informed consent. The patient was brought to the cardiac catheterization la boratory, prepped and draped in usual sterile fashion. I accessed right radial artery using SRCH2 c micropuncture kit and placed 6-Malawian Slender sheath, and took 5-Malawian tiger 4 catheter over the J -wire into the aortic root, engaged the left main and the right coronary artery, took standard views, and the catheter was pushed over the wire into the LV, measured the LVEDP. Pullback did not record any gradient. Then, removed the catheter and the sheath and placed TR band with good hemostasis. Findings: 1.Left main normal. 2.LAD is normal. Normal diagonal branches. 3.Left circumflex; moderate size with luminal irregularities throughout. 4.RCA is large vessel, dominant, mid 20%. Rest of it is normal. 5.Normal LVEDP of 5 mmHg. Conclusions: 1.No significant coronary artery disease. 2.Normal LVEDP. Recommendation: Medical management. SR/MODL Voice ID: [id number] Report ID: [id number]
== END 2023-07-09 18:24 | disposition home or self-care (01) | DRG 282 ==
LOC: ER 15:33 → ERHOLD 21:44 → 2ND 07-08 04:13
PROVIDERS: ADMIT Internal Medicine; ATTEND Internal Medicine
PROC: 4A023N7 Measurement of Cardiac Sampling and Pressure, Left Heart, Percutaneous Approach (ICD-10-PCS; principal; 2023-07-09)
PROC: B2111ZZ Fluoroscopy of Multiple Coronary Arteries using Low Osmolar Contrast (ICD-10-PCS; 2023-07-09)
DX: I21.4 Non-ST elevation (NSTEMI) myocardial infarction (principal); E86.0 Dehydration; E78.5 Hyperlipidemia, unspecified; I25.10 Atherosclerotic heart disease of native coronary artery without angina pectoris; Z79.82 Long term (current) use of aspirin; Z79.899 Other long term (current) drug therapy
CPT/HCPCS: 36415; 71045; 71275; 76937; 80048; 80053; 80061; 80076; 81001; 83735; 84484; 85025; 85379; 93005; 93306; 93458; 96361; 96372; 96374; 96375; 99152; 99153; 99285; C1893; J0461; J1200; J1644; J1650; J2001; J2250; J2930; J3010; J7030; J7040; Q9966; Q9967